=== PATIENT | female | born 1950 | race Caucasian/White ===

== ENCOUNTER → 2023-08-25 06:34 | Day surgery (SDC) | payer OTHER, SELFPAY | LOC: GI 06:34 | PROVIDERS: ATTENDING PHYSICIAN Internal Medicine | DX: Z12.11 Encounter for screening for malignant neoplasm of colon (principal); K57.30 Diverticulosis of large intestine without perforation or abscess without bleeding; R85.613 High grade squamous intraepithelial lesion on cytologic smear of anus (HGSIL); A63.0 Anogenital (venereal) warts; K64.4 Residual hemorrhoidal skin tags | CPT/HCPCS: 45380; 88305; 88341; 88342 ==

== ENCOUNTER → 2023-10-05 13:30 | Outpatient (REF) | payer OTHER, SELFPAY | LOC: RAD 13:30 | PROVIDERS: ATTENDING PHYSICIAN Podiatrist; FAMILY PHYSICIAN Physician Assistant Medical | DX: I73.9 Peripheral vascular disease, unspecified (principal); I70.90 Unspecified atherosclerosis; R60.9 Edema, unspecified; I87.2 Venous insufficiency (chronic) (peripheral) | CPT/HCPCS: 93922; 93925; 93970 ==

== ENCOUNTER → 2023-11-23 05:52 | Outpatient (REF) | payer OTHER, SELFPAY ==
[2023-11-29 19:24] LABS: HPV, High Risk Detected; HPV, High Risk Source Anal
== END ==
LOC: CLAB 05:52
PROVIDERS: ATTENDING PHYSICIAN Surgery
DX: Z86.19 Personal history of other infectious and parasitic diseases (principal)
CPT/HCPCS: 88305; 87624; 88112

== ENCOUNTER → 2024-01-15 10:44 | Outpatient (REF) | payer OTHER, SELFPAY | LOC: MRI 3T 10:44 | PROVIDERS: ATTENDING PHYSICIAN Surgery; FAMILY PHYSICIAN Physician Assistant Medical | DX: C21.1 Malignant neoplasm of anal canal (principal) | CPT/HCPCS: 72197; A9575 ==

== ENCOUNTER 2024-01-19 06:28 | Day surgery (SDC) | payer OTHER, SELFPAY ==
[2024-01-19] MEDS: CELEBREX 200 MG PO (07:09)
[2024-01-19] MEDS: TYLENOL 1000 MG PO (07:10)
--- NOTE | 2024-01-19 10:18 | W.IMMPOSTOP ---
Surgical Immed Post Op Note
-
Primary Surgeon: Arsh Monae MD
Assisting Surgeon: TIEN Woo
Pre-op Diagnosis: Anal squamous cell carcinoma in situ, perianal high-grade squamous intraepithelial lesion
Post-op Diagnosis: As above
Procedure Performed: High resolution anoscopy, transanal excision of anal squamous cell carcinoma in situ, multiple anal biopsies, perianal biopsy with fulguration
Anesthesia Type: sedation with local
Specimen / Cultures:
1. Right posterior lateral lesion (likely squamous cell carcinoma in situ)
2. Posterior midline band biopsy
3. Left lateral deep biopsy
4. Left posterior lateral deep biopsy
5. Anterior midline dentate biopsy
6. Right posterior deep biopsy
7. Right posterior perianal lesion biopsy
Estimated Blood Loss: 5 mL
Complications: None
Operative Findings: Identified likely squamous cell carcinoma in situ in the right posterior lateral position just proximal to the dentate line, performed transanal excision; performed multiple other biopsies as listed above; in the previous
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
--- NOTE | 2024-01-19 10:27 | OR.RPT ---
Operative Report
Operative Report
DATE OF OPERATION: 01/19/2024
SURGEON: Arsh Monae MD
PREOPERATIVE DIAGNOSIS: Anal squamous cell carcinoma in situ, perianal high-grade squamous intraepithelial lesion, anal HPV
POSTOPERATIVE DIAGNOSIS: As above
OPERATION: Exam under anesthesia, high-resolution anoscopy, transanal excision of anal squamous cell carcinoma in situ, multiple anal biopsies, biopsy and fulguration of perianal lesion, bilateral pudendal nerve block
ASSISTANTS:
1. TIEN Woo
ANESTHESIA: MAC w/ local
ESTIMATED BLOOD LOSS: 5 mL
FINDINGS:
1. Identified slightly raised lesion in the right posterior lateral position just proximal to the dentate line at the location of my in�office biopsy; performed a saline lift and transanal excision
2. Performed multiple other biopsies as listed below for areas of acetowhite/Lugol's negative
3. Performed biopsy of perianal lesion at the site of prior HSIL and fulgurated
4. Small to moderate internal hemorrhoids in the 3�column distribution, no irritation or bleeding
4. Small, stable, anal skin tag in the anterior midline
SPECIMENS:
1. Right posterior lateral lesion (likely previously-identified squamous cell carcinoma in situ/HSIL)
2. Posterior midline band biopsy
3. Left lateral deep biopsy
4. Left posterior lateral deep biopsy
5. Anterior midline dentate biopsy
6. Right posterior deep biopsy
7. Right posterior perianal lesion biopsy (site of previous perianal HSIL)
DRAINS: N/A
COMPLICATIONS: None
INDICATIONS: The patient is a 73-year-old female who was found to have a perianal lesion during colonoscopy. Biopsy of this lesion showed high-grade squamous intraepithelial lesion. She then underwent in�office high resolution anoscopy with anal
Pap. The perianal lesion in the right posterior quadrant showed condyloma. 2 intra-anal biopsies were taken, one which was negative for intraepithelial lesion or malignancy. The other, in the right posterior lateral position just proximal to the
dentate line, came back as squamous cell carcinoma in situ/HSIL. The anal Pap showed high risk HPV (not 16/18/45) and squamous cell carcinoma. She underwent a pelvic MRI, which was negative for any mass or lesion, consistent with the finding of
squamous cell carcinoma in situ (as opposed to invasive). Therefore, the patient was recommended to have high-resolution anoscopy with possible transanal excision of the squamous cell carcinoma in situ and biopsy, possible fulguration, of any other
concerning lesions. The operation was discussed with the patient in detail, including the risks, benefits and alternatives. Risks described included, but not limited to bleeding, infection, urinary retention, damage to nearby structures such as the
anal sphincter, missed lesions, recurrence, progression to anal cancer despite monitoring and treatment, need for continued surveillance, and anesthetic risks. The patient understood and agreed to proceed. The consent was signed and placed in the
chart.
PROCEDURE IN DETAIL: The patient was taken to the operating room. The patient was then placed on the operating table in prone position. Sequential compression devices were placed bilaterally. Sedation was commenced without complication. Two seat
belts were secured around the legs and upper back. The buttocks were taped apart. The perineum was prepped and draped in the usual fashion. A time-out was then performed verifying the correct patient, procedure, operative site, positioning, and
special equipment.
Local anesthesia used was a mixture of 60 mL of 0.25% Marcaine epinephrine and 0.6 mg of dexamethasone. 40 mL was injected perianally at the beginning of the case. The anorectal exam was performed assessing all four quadrants of the anal canal
using Hill-Melo retractors in progressively increasing size. She had small to moderate internal hemorrhoids in the usual 3�column distribution, no evidence of irritation or bleeding, as noted previously. She had a small anterior midline skin
tag, as noted previously. In the location of her known perianal condyloma which was initially biopsied and showed HSIL, there was a raised skin tag without verrucous features.
I placed a ray-luis fernando soaked in 5% acetic acid within the anal canal and folded an external portion of it to cover the rea-anal region. This was left in place for 3 minutes and then removed. The anal canal was again visualized with Jonathan-Melo
retractors. Each quadrant was examined using the laparoscope on highest zoom, allowing for high-resolution. Lugol's 2% solution was then swabbed on to each quadrant under direct visualization using high-resolution. I focused my attention on the
squamous cell carcinoma in situ located in the right posterior region. At the site of my previous biopsy, I noted a slightly raised area that was acetowhite and Lugol's negative, most consistent with the carcinoma in situ. In order to obtain
margins, I performed a transanal excision. I first raised the lesion with saline injection in the submucosal space. I used Bovie electrocautery to demetria out at least 2 mm margins. I scored the distal portion of the lesion and raised this with a
Indian forceps. I then dissected under the lesion in the submucosal space using electrocautery. Once the lesion was completely removed, I passed this off for specimen. I obtained hemostasis with electrocautery. There was adjacent areas of anal
mucosa, nonraised, that stained acetowhite with slight Lugol's negative. I fulgurated these areas, totaling an area of less than 20% of the circumference of the anal canal.
I evaluated the posterior quadrant. I identified an acetowhite, Lugol's negative strip of anoderm, oriented transversely at the anal verge. I performed a biopsy of this using DeBakey's and a Metzenbaum scissors. I fulgurated the edges and
achieved hemostasis with electrocautery. No other concerning areas were noted in the posterior quadrant.
I evaluated the left lateral quadrant. 2 locations of acetowhite/Lugol's negative were noted, one in the left lateral position immediately proximal to the dentate line, and the other in the left posterior lateral position, about 1 cm proximal to
the dentate line. These areas were biopsied using a DeBakey's and Metzenbaum scissors. The edges were fulgurated and hemostasis was achieved with electrocautery.
I evaluated the anterior quadrant in a similar fashion. 2 locations of acetowhite/Lugol's negative were noted, 1 in the anterior midline at the level of the dentate and the other in the right posterior region, about 1 cm proximal to the dentate
line. These areas were biopsied using a DeBakey's and Metzenbaum scissors. The edges were fulgurated and hemostasis was achieved with electrocautery.
I evaluated the right lateral quadrant once more. No other areas of acetowhite/Lugol's negative were noted.
Regarding the skin tag in the location of her prior perianal condyloma, to ensure no further dysplasia, I took a biopsy with a DeBakey's and Metzenbaum scissors. I fulgurated the skin tag to negative margins. Hemostasis was confirmed
The remaining 20 mL of local were injected. 5 mL was injected bilaterally for a pudendal nerve block. 10 mL was injected around the surgical site and perianally. Hemostasis was reassessed once more using the medium Hill-Melo and was confirmed.
Surgicel was placed in the operative site prophylactically.
At this point, the procedure was complete. All needle, sponge and instrument counts were correct. The patient tolerated the procedure well and was transferred to the recovery room in stable condition with gauze dressing in place secured with silk
tape.
The assistance of TIEN Woo was required due to the complexity of the procedure. During the procedure, he assisted with retraction, countertraction, and exploration.
DICTATED BY: Arsh Monae MD
== END 2024-01-19 10:37 | disposition home or self-care (01) ==
LOC: SDS 06:28
PROVIDERS: ATTENDING PHYSICIAN Surgery; FAMILY PHYSICIAN Physician Assistant Medical
DX: D01.3 Carcinoma in situ of anus and anal canal (principal); A63.0 Anogenital (venereal) warts; K64.8 Other hemorrhoids; K64.4 Residual hemorrhoidal skin tags
CPT/HCPCS: 45172; 46600; 88305; 36415; 93005

== ENCOUNTER 2024-05-15 06:40 | Day surgery (SDC) | payer OTHER, SELFPAY ==
[2024-05-15 07:48] VITALS: BMI 27.5
[2024-05-15 07:49] VITALS: BMI 27.5
[2024-05-15 07:51] VITALS: BP 154/81
[2024-05-15] MEDS: CELEBREX 200 MG PO (08:09)
[2024-05-15] MEDS: TYLENOL 1000 MG PO (08:09)
[2024-05-15] MEDS: NORMOSOL-R/PLASMALYTE-A 1000 IV (08:10)
[2024-05-15 09:58] VITALS: BP 123/54
[2024-05-15 10:00] VITALS: BP 121/59
[2024-05-15 10:15] VITALS: BP 129/66
[2024-05-15 10:30] VITALS: BP 158/66
[2024-05-15 10:45] VITALS: BP 141/68
== END 2024-05-15 11:18 | disposition home or self-care (01) ==
LOC: SDS 06:40
PROVIDERS: ATTENDING PHYSICIAN Surgery
DX: A63.0 Anogenital (venereal) warts (principal); K64.4 Residual hemorrhoidal skin tags
CPT/HCPCS: 46607; 88305

== ENCOUNTER 2024-07-07 17:40 | Emergency (ER) | payer OTHER, SELFPAY ==
[2024-07-07 17:43] VITALS: BP 161/81
--- NOTE | 2024-07-07 18:43 | ED.MUSCINJ ---
HPI-Injury
General
Chief Complaint: Fall
Source: patient
Time Seen by Provider: 07/07/24 18:03
Nursing documentation reviewed up to this point in time: agreed with
History of Present Illness-Injury
Initial Injury comments:
Pleasant 73-year-old female presents to the emergency department after a fall on Monday. She was walking at a local eating establishment when she tripped on the curb causing her to hit her head. Denies loss of consciousness. Reports no blurry
vision. Denies headache nausea, or vomiting. She is concerned because she does have pain around her temples and at the bridge of her nose. She has been placing triple antibiotic cream on the abrasions at this fall caused. She has been ambulating
normally.
Past History
Past History
ED Past Medical History: GERD, HTN, Hypercholesterolemia and Psychiatric (Bipolar disorder, Anxiety)
ED Past Surgical History: Cholecystectomy
Social History
Tobacco: Former smoker
Alcohol: None
Personal:
Living: with family
Employment: Employed
Family History
Family History: Other (CAD, CVA, rheumatoid arthritis, diabetes)
Skin Exam
Abrasion
Face:
Description of abrasion: superfical/clean
Phy Exam
General Physical Exam
General Presentation: well appearing and mild distress
General age: appears stated age
General Skin: warm and dry
General Habitus: normal
General Mental: alert
Cardiovascular Exam
Cardiovascular Exam: regular rate/rhythm and no edema
Pulmonary Exam
Pulmonary Exam: lungs clear and no respiratory distress
Neurological Exam
Neurological Exam: alert and oriented x3
Musculoskeletal Exam
Musculoskeletal Exam: full ROM, no edema and neuro vasc intact
Skin Exam
Skin Exam: other (Abrasions to the face without signs of cellulitis.)
Injury Course
Orders/Labs/Results
Orders:
Orders
07/07/24 18:42
CT Facial Bones W/o Iv Contras Urgent
Comment:
Reason For Exam: fall with TTP to nose and temples
*Radiology
Radiology exam reviewed: radiology read reviewed
*Pulse Oximetry
Patient hypoxic: no
*Critical Care Note
Total Time (30-74mins, 75-104mins- exclusive of procedures): Not Applicable
ED Attending Note
-
Portions of this chart may have been created with voice recognition software.� Occasional wrong word or��sound alike� substitutions may have occurred due to the inherent limitations of voice recognition software.
Discharge Plan
Departure
Patient Disposition: Home (Routine Discharge)
Date of Disposition: 07/07/24
Time of Disposition: 22:00
Patient with high blood pressure during this ER visit?: No
Condition: Good
Discharge Problem:
Closed fracture nasal bone
Instructions: Concussion, Adult (DC), Wound Care (DC), Contusion (DC), Preventing falls in adults, BLOOD PRESSURE
Prescriptions:
No Action
aspirin 81 MG tablet,delayed release (DR/EC)
81 mg PO DAILY Qty: 0 0RF
digestive enzymes Tablet
1 tab PO QPM
omeprazole 40 mg Capsule,Delayed Release(Dr/Ec)
40 mg PO DAILY
amlodipine 10 mg Tablet
10 mg PO DAILY
vitamin B complex Tablet
1 tab PO QPM
cholecalciferol (vitamin D3) [Vitamin D3] 125 mcg (5,000 unit) Tablet
125 mcg PO DAILY
[place] 3-6-9 1,200 mg Capsule
2 cap PO DAILY
Proprebiotic
1 tab PO BID
naproxen [Naprosyn] 500 mg tablet
500 mg PO BID Qty: 14 0RF
lamotrigine [Lamictal] 150 mg Tablet
150 mg PO DAILY
buspirone 10 mg Tablet
10 mg PO TID
lorazepam 1 mg Tablet
1 mg PO TID
Referrals:
Michael England MD [Active] -
Rimma Genao MD [Family Provider] -
Activity Restrictions/Additional Instructions:
Thank You for choosing [facility].
It was a pleasure meeting you and taking part in your care. We hope for your continued healing and wellness.
Please read discharge instructions in their entirety. However, they are for general education and may not describe your exact diagnosis at discharge. Information on your ER visit and medical conditions were discussed with you along with appropriate
follow up information...
If indicated, please take your medications as instructed and indicated on discharge paperwork.
Please schedule a follow up appointment as directed. Call to schedule an appointment
Please return to the emergency department with ANY change in, persisting, or worsening of symptoms. If any of your symptoms do not improve, or persist, or become more severe within 6-12 hours, please return to the emergency department for further
care.
Please return to the emergency department if you develop a headache, neck pain/stiffness, fever greater than 100.4F, chest pain, shortness of breath, persistent nausea, vomiting, slurred speech, difficulty walking, numbness/tingling, weakness, signs
of infection or any other symptoms that are worrisome to you.
If you have any questions or concerns please do not hesitate to call the Hospital at or E-mail me directly at [email or web address]
Interventions
Interventions:
*Risk Screen - Suicide Last Done: 07/07/24 17:43
*General Assessment Last Done: 07/07/24 17:43
*Neglect/Abuse Screening Last Done: 07/07/24 17:43
*ED- Fall Risk Assessment Last Done: 07/07/24 18:55
*ED COVID-19 Vaccine History Last Done: 07/07/24 17:43
*Nursing Disposition Last Done: 07/07/24 22:11
ED-Musculoskeletal Assessment Last Done: 07/07/24 19:01
ED- Neurological Assessment Last Done: 07/07/24 19:01
ED-Skin Assessment Last Done: 07/07/24 19:01
Discharge Date and Time
Discharge Date/Time: 07/07/24 22:13
Print Language: TONGAN
[2024-07-07 22:09] VITALS: BP 150/78
== END 2024-07-07 22:13 | disposition home or self-care (01) ==
LOC: EMR 17:40
PROVIDERS: EMERGENCY PHYSICIAN Student in an Organized Health Care Education/Training Program; FAMILY PHYSICIAN Family Medicine
DX: S02.2XXA Fracture of nasal bones, initial encounter for closed fracture (principal); S00.81XA Abrasion of other part of head, initial encounter; W01.0XXA Fall on same level from slipping, tripping and stumbling without subsequent striking against object, initial encounter; Y93.01 Activity, walking, marching and hiking; I10 Essential (primary) hypertension; F31.9 Bipolar disorder, unspecified; F41.9 Anxiety disorder, unspecified; E78.00 Pure hypercholesterolemia, unspecified; Z87.891 Personal history of nicotine dependence; Z90.49 Acquired absence of other specified parts of digestive tract; Z88.0 Allergy status to penicillin; Z88.8 Allergy status to other drugs, medicaments and biological substances; Z91.048 Other nonmedicinal substance allergy status; Z79.82 Long term (current) use of aspirin
CPT/HCPCS: 99284; 70486

== ENCOUNTER 2024-08-05 19:22 | Emergency (ER) | payer OTHER, SELFPAY ==
[2024-08-05 19:30] VITALS: BP 175/82
[2024-08-05 22:13] VITALS: BP 125/68
[2024-08-05] MEDS: PERCOCET 5/325 1 TABLET PO (22:24)
--- NOTE | 2024-08-06 00:36 | ED.MUSCINJ ---
HPI-Injury
General
Chief Complaint: Musculo-Skeletal Complaint
Source: patient
Exam Limitations: none
Time Seen by Provider: 08/05/24 20:09
Nursing documentation reviewed up to this point in time: agreed with
History of Present Illness-Injury
Is this injury a work related problem?: No
Is pt an associate of [facility]?: No
Initial Injury comments:
Patient states she fell off a chair and hit a console. Denies hitting her head. No LOC. Hit left chest on console. COmplains of worsening pain to left ant. chest. Pain is worse with movement,. No SOB. No abd. pain. To ED accompanied by spouse
for eval.
Past History
Past History
ED Past Medical History: GERD, HTN, Hypercholesterolemia and Psychiatric (Bipolar disorder, Anxiety)
ED Past Surgical History: Cholecystectomy
Social History
Tobacco: Former smoker
Alcohol: None
Personal:
Living: with family
Employment: Employed
Family History
Family History: Other (CAD, CVA, rheumatoid arthritis, diabetes)
Review of Systems
Review of Systems
Allergies reviewed?: Yes
All Other Systems: ROS reviewed and negative except as documented in HPI and ROS
Constitutional: Reports no symptoms
EENT: Reports no symptoms
Respiratory: Reports no symptoms
Cardiac: Reports no symptoms
ABD/GI: Reports no symptoms
: Reports no symptoms
Musculoskeletal: Reports joint pain (pain to left ant. chest)
Skin: Reports no symptoms
Neurological: Reports no symptoms
Psychiatric: Reports no symptoms
Musculoskeletal Injury Exam
Musculoskeletal Injury Exam
Left Anterior Chest:
Pain with Movement?: Moderate
Tender to palpation?: Moderate
Soft tissue swelling?: None
External deformity and angulation?: None
Joint effusion?: None
Contusion?: Moderate
Hematoma-local bleeding into tissue?: None
Strain- Sprain- Tear (Connective tissue injury)?: None
Crepitus with movement?: No
Joint instability?: No
Malalignment/deformity?: No
Range of motion: Limited
Distal skin color and temperature: normal-warm & good color
Capillary Refill: normal
Normal distal neurovascular exam?: Yes
Phy Exam
General Physical Exam
General Presentation: mild distress
General age: appears stated age
General Skin: warm and dry
Cardiovascular Exam
Cardiovascular Exam: regular rate/rhythm
Pulmonary Exam
Pulmonary Exam: lungs clear and no respiratory distress
Chest Wall: Left anterior: tenderness
Gastrointestinal Exam
Gastrointestinal Exam: normal bowel sounds, non tender, soft, no organomegaly, no pulsatile mass, non distended and other (No bruising noted on abd. wall)
Musculoskeletal Exam
Musculoskeletal Exam: other (Left ant. chest wall pain. Reproduceable)
Skin Exam
Skin Exam: normal color, warm/dry and no rash
Psychiatric Exam
Psychiatric Exam: normal mood/affect
Injury Course
Orders/Labs/Results
Orders:
Orders
08/05/24 19:32
CR Ribs-left 3 Vw W/pa Chest Urgent
Comment:
Reason For Exam: injury
08/05/24 22:22
Oxycodone/Acetaminophen [Percocet 5/325] 1 tablet .ROUTE .STK-MED ONE
08/05/24 22:23
Oxycodone/Acetaminophen [Percocet 5/325] 1 tablet PO NOW STA
*Radiology
Radiology exam reviewed: radiology read reviewed
*Pulse Oximetry
Patient hypoxic: no
ED Attending Note
-
Portions of this chart may have been created with voice recognition software.� Occasional wrong word or��sound alike� substitutions may have occurred due to the inherent limitations of voice recognition software.
Discharge Plan
Departure
Patient Disposition: Home (Routine Discharge)
Date of Disposition: 08/05/24
Time of Disposition: 22:50
Patient with high blood pressure during this ER visit?: No
Condition: Good
Covid-19: Not Applicable
Discharge Problem:
Fracture, rib
Instructions: Contusion (DC), Ibuprofen, Using Cold for Pain, How to use an incentive spirometer, Rib Fracture
Prescriptions:
New
hydrocodone-acetaminophen 5-325 mg tablet
1 tab PO Q4H PRN (Reason: Pain) Qty: 14 0RF
No Action
aspirin 81 MG tablet,delayed release (DR/EC)
81 mg PO DAILY Qty: 0 0RF
digestive enzymes Tablet
1 tab PO QPM
omeprazole 40 mg Capsule,Delayed Release(Dr/Ec)
40 mg PO DAILY
amlodipine 10 mg Tablet
10 mg PO DAILY
vitamin B complex Tablet
1 tab PO QPM
cholecalciferol (vitamin D3) [Vitamin D3] 125 mcg (5,000 unit) Tablet
125 mcg PO DAILY
[place] 3-6-9 1,200 mg Capsule
2 cap PO DAILY
Proprebiotic
1 tab PO BID
naproxen [Naprosyn] 500 mg tablet
500 mg PO BID Qty: 14 0RF
lamotrigine [Lamictal] 150 mg Tablet
150 mg PO DAILY
buspirone 10 mg Tablet
10 mg PO TID
lorazepam 1 mg Tablet
1 mg PO TID
Referrals:
Jen Martin PA-C [Family Provider] - Tomorrow
Interventions
Interventions:
*Risk Screen - Suicide Last Done: 08/05/24 22:14
*General Assessment Last Done: 08/05/24 19:30
*Neglect/Abuse Screening Last Done: 08/05/24 22:14
*ED- Fall Risk Assessment Last Done: 08/05/24 22:14
*ED COVID-19 Vaccine History Last Done: 08/05/24 22:14
*Nursing Disposition Last Done: 08/05/24 22:43
ED-Musculoskeletal Assessment Last Done: 08/05/24 22:13
Discharge Date and Time
Discharge Date/Time: 08/05/24 22:59
Print Language: PAKISTANI
== END 2024-08-05 22:59 | disposition home or self-care (01) ==
LOC: EMR 19:22
PROVIDERS: EMERGENCY PHYSICIAN Student in an Organized Health Care Education/Training Program; FAMILY PHYSICIAN Physician Assistant Medical
DX: S22.42XA Multiple fractures of ribs, left side, initial encounter for closed fracture (principal); S20.212A Contusion of left front wall of thorax, initial encounter; W07.XXXA Fall from chair, initial encounter; I10 Essential (primary) hypertension; F31.9 Bipolar disorder, unspecified; F41.9 Anxiety disorder, unspecified; E78.00 Pure hypercholesterolemia, unspecified; K21.9 Gastro-esophageal reflux disease without esophagitis; F41.0 Panic disorder [episodic paroxysmal anxiety]; F43.10 Post-traumatic stress disorder, unspecified; K76.0 Fatty (change of) liver, not elsewhere classified; M19.90 Unspecified osteoarthritis, unspecified site; M81.0 Age-related osteoporosis without current pathological fracture; E11.36 Type 2 diabetes mellitus with diabetic cataract; Z86.73 Personal history of transient ischemic attack (TIA), and cerebral infarction without residual deficits; Z85.048 Personal history of other malignant neoplasm of rectum, rectosigmoid junction, and anus; Z87.891 Personal history of nicotine dependence; Z90.49 Acquired absence of other specified parts of digestive tract
CPT/HCPCS: 99283; 71101

== ENCOUNTER 2025-01-14 14:26 | Emergency (ER) | payer OTHER, SELFPAY ==
[2025-01-14 14:30] VITALS: BP 174/94
[2025-01-14 16:00] VITALS: BP 135/78
--- NOTE | 2025-01-14 16:28 | ED.MUSCINJ ---
HPI-Injury
General
Chief Complaint: Musculo-Skeletal Complaint
Source: patient
Exam Limitations: none
Time Seen by Provider: 01/14/25 16:19
Nursing documentation reviewed up to this point in time: agreed with
History of Present Illness-Injury
Initial Injury comments:
74-year-old female with history of CVA, HTN, HLD, GERD, anxiety, bipolar, PTSD, panic disorder presents for right rib pain after fall one week ago at home, slipped on creme rinse. Denies SOB or abdominal pain.
Past History
Past History
ED Past Medical History: GERD, HTN, Hypercholesterolemia and Psychiatric (Bipolar disorder, Anxiety)
ED Past Surgical History: Cholecystectomy
Social History
Tobacco: Former smoker
Alcohol: None
Personal:
Living: with family
Employment: Employed
Family History
Family History: Other (CAD, CVA, rheumatoid arthritis, diabetes)
Review of Systems
Review of Systems
Allergies reviewed?: Yes
All Other Systems: ROS reviewed and negative except as documented in HPI and ROS
Phy Exam
Physical Exam
Physical Exam:
GENERAL: No acute distress. A&Ox3.
CONSTITUTIONAL: Afebrile.
EYES: clear, conjunctivae normal
ENMT: moist mucus membranes
RESPIRATORY: Regular respirations, nonlabored, lungs clear.
CARDIOVASCULAR: Regular rate and rhythm, no murmurs, no rubs.
GI: Soft, nontender, normal BS
MUSCULOSKELETAL: Moves with ease. Well perfused. Tender to palpate right mid to anterior ribs, full range of motion of arms with no significant tenderness of the right shoulder area. Patient is moving well, getting off stretcher and walking down
hallway to the bathroom with ease.
SKIN: Warm, dry, pink, small greenish ecchymotic area posterior aspect of right shoulder, small area of greenish ecchymosis under right axilla
PSYCH: Normal mood and affect. Well kept, interactive and appropriate
NEUROLOGIC: Awake, alert and oriented. No focal neurological deficits
Injury Course
Orders/Labs/Results
Orders:
Orders
01/14/25 14:30
Ribs, Right 3 View W/PA Chest [CR Ribs-right 3 Vw W/pa Chest*] Urgent
Comment:
Reason For Exam: fall
MDM/Problems Addressed
Differential Diagnosis Includes:
Rib contusion versus fracture
MDM/Problems Addressed:
74-year-old female with history of CVA, HTN, HLD, GERD, anxiety, bipolar, PTSD, panic disorder presents for right rib pain after fall one week ago at home, slipped on creme rinse. Denies SOB or abdominal pain.
X-ray of ribs with chest reveals no acute abnormality
We tried a rib belt on her but it did not help much so it was removed.
She does not appear to be uncomfortable. She is requesting Percocet. I explained that we do not give narcotic for this type of injury, she states she has some leftover from a previous injury she will use.
Stable for discharge
*Pulse Oximetry
SaO2: 96
Oxygen Mode of Delivery: Room air
Patient hypoxic: no
*Critical Care Note
Total Time (30-74mins, 75-104mins- exclusive of procedures): Not Applicable
ED Attending Note
-
Portions of this chart may have been created with voice recognition software.� Occasional wrong word or��sound alike� substitutions may have occurred due to the inherent limitations of voice recognition software.
Discharge Plan
Departure
Patient Disposition: Home (Routine Discharge)
Date of Disposition: 01/14/25
Time of Disposition: 16:44
Patient with high blood pressure during this ER visit?: No
Condition: Good
Discharge Problem:
Fall from slip, trip, or stumble, Rib contusion
Instructions: Rib fracture or bruised rib - ED (DC)
Prescriptions:
No Action
aspirin 81 MG tablet,delayed release (DR/EC)
81 mg PO DAILY Qty: 0 0RF
digestive enzymes Tablet
1 tab PO QPM
omeprazole 40 mg Capsule,Delayed Release(Dr/Ec)
40 mg PO DAILY
amlodipine 10 mg Tablet
10 mg PO DAILY
vitamin B complex Tablet
1 tab PO QPM
cholecalciferol (vitamin D3) [Vitamin D3] 125 mcg (5,000 unit) Tablet
125 mcg PO DAILY
[place] 3-6-9 1,200 mg Capsule
2 cap PO DAILY
Proprebiotic
1 tab PO BID
naproxen [Naprosyn] 500 mg tablet
500 mg PO BID Qty: 14 0RF
lamotrigine [Lamictal] 150 mg Tablet
150 mg PO DAILY
buspirone 10 mg Tablet
10 mg PO TID
lorazepam 1 mg Tablet
1 mg PO TID
hydrocodone-acetaminophen 5-325 mg tablet
1 tab PO Q4H PRN (Reason: Pain) Qty: 14 0RF
Referrals:
Your Doctor [Other] - As needed
UNKNOWN - PT DOES,NOT KNOW [Unknown Provider]
Activity Restrictions/Additional Instructions:
As we discussed, your x-ray showed no obvious rib fracture. Tylenol or ibuprofen as needed for pain.
Interventions
Interventions:
*Risk Screen - Suicide Last Done: 01/14/25 14:30
*Neglect/Abuse Screening Last Done: 01/14/25 14:30
*Nursing Disposition Last Done: 01/14/25 17:24
ED-Musculoskeletal Assessment Last Done: 01/14/25 15:58
Discharge Date and Time
Discharge Date/Time: 01/14/25 17:24
Print Language: [id number]
== END 2025-01-14 17:24 | disposition home or self-care (01) ==
LOC: EMR 14:26
PROVIDERS: EMERGENCY PHYSICIAN Emergency Medicine; FAMILY PHYSICIAN Physician Assistant Medical
DX: S20.211A Contusion of right front wall of thorax, initial encounter (principal); W01.0XXA Fall on same level from slipping, tripping and stumbling without subsequent striking against object, initial encounter; I10 Essential (primary) hypertension; E78.00 Pure hypercholesterolemia, unspecified; Z87.891 Personal history of nicotine dependence; Z90.49 Acquired absence of other specified parts of digestive tract; Z86.73 Personal history of transient ischemic attack (TIA), and cerebral infarction without residual deficits
CPT/HCPCS: 99283; 71101